=== PATIENT | male | born 1980 | race Two or more races ===

== ENCOUNTER 2020-07-13 15:54 | Outpatient (CLI) | payer BC | END 2020-07-13 23:59 | disposition home or self-care (01) | LOC: MSC 15:54 | PROVIDERS: ATTEND Internal Medicine | DX: G47.00 Insomnia, unspecified (principal); F41.0 Panic disorder [episodic paroxysmal anxiety]; E78.5 Hyperlipidemia, unspecified; R74.0 Nonspecific elevation of levels of transaminase and lactic acid dehydrogenase [LDH] ==

== ENCOUNTER 2021-03-08 14:31 | Outpatient (CLI) | payer BC | END 2021-03-08 23:59 | disposition home or self-care (01) | LOC: MSC 14:31 | PROVIDERS: ATTEND Internal Medicine | DX: F41.0 Panic disorder [episodic paroxysmal anxiety] (principal); E78.5 Hyperlipidemia, unspecified; G47.00 Insomnia, unspecified; E66.9 Obesity, unspecified; Z68.29 Body mass index [BMI] 29.0-29.9, adult; Z71.3 Dietary counseling and surveillance; J30.9 Allergic rhinitis, unspecified; Z79.899 Other long term (current) drug therapy ==

== ENCOUNTER 2021-04-30 12:15 | Outpatient (CLI) | payer BC | END 2021-04-30 23:59 | disposition home or self-care (01) | LOC: MSC 12:15 | PROVIDERS: ATTEND Internal Medicine | DX: F41.0 Panic disorder [episodic paroxysmal anxiety] (principal); G47.00 Insomnia, unspecified; E78.5 Hyperlipidemia, unspecified; E66.9 Obesity, unspecified; J30.9 Allergic rhinitis, unspecified; Z79.899 Other long term (current) drug therapy ==

== ENCOUNTER 2021-05-06 14:02 | Outpatient (CLI) | payer BC | END 2021-05-06 23:59 | disposition home or self-care (01) | LOC: MSC 14:02 | PROVIDERS: ATTEND Internal Medicine | DX: G47.00 Insomnia, unspecified (principal); F41.0 Panic disorder [episodic paroxysmal anxiety]; E78.5 Hyperlipidemia, unspecified; J30.9 Allergic rhinitis, unspecified; E66.9 Obesity, unspecified; Z79.899 Other long term (current) drug therapy ==